=== PATIENT | female | born 1985 | race Two or more races ===

== ENCOUNTER → 2020-03-04 | Outpatient (CLI) | payer OTHER ==
[~2020-03-04] MED LIST: DESO1TAB70 PO
[2020-03-04 17:06] LABS: BASOPHILS % (AUTO) 1 % (0-1); EOSINOPHILS % (AUTO) 4 % (1-7); LYMPHOCYTES % (AUTO) 50 % (22-44); MEAN CORPUSCULAR HEMOGLOBIN 30.2 pg (27.0-34.8); MEAN CORPUSCULAR HGB CONC 32.5 g/dL (32.4-35.8); MEAN PLATELET VOLUME 7.7 fL (7.4-10.4); MONOCYTES % (AUTO) 7 % (2-9); NEUTROPHILS % (AUTO) 38 % (42-75); PLATELET COUNT 418 x10^3/uL (130-400); RED BLOOD COUNT 3.95 x10^6/uL (3.82-5.3)
[2020-03-04 17:10] LABS: MD NO
== END | disposition home or self-care (01) ==
LOC: STAR 14:40
PROVIDERS: ATTEND Obstetrics & Gynecology
DX: Z01.818 Encounter for other preprocedural examination (principal); N94.6 Dysmenorrhea, unspecified; D21.9 Benign neoplasm of connective and other soft tissue, unspecified
CPT/HCPCS: 36415; 84703; 85025

== ENCOUNTER → 2020-03-06 | Outpatient (CLI) | payer OTHER | END | disposition home or self-care (01) | LOC: STAR 11:31 | PROVIDERS: ATTEND Anesthesiology | DX: Z01.812 Encounter for preprocedural laboratory examination (principal); Z20.828 Contact with and (suspected) exposure to other viral communicable diseases | CPT/HCPCS: 36415; 87635 ==

== ENCOUNTER 2020-03-11 13:00 | Day surgery (SDC) | payer OTHER ==
[~2020-03-11] VITALS: Ht 162.6 cm; Wt 61.2 kg
[~2020-03-11 13:00] MED LIST changes: +BUPIVACAINE/PF 0.25% ONE; +FLUORESCEIN SODIUM 500 MG/5 ML ONE; +INDIGO CARMINE 0.8%, 5ML ONE; +KETOROLAC 30 MG/1 ML ONE
[2020-03-11] MEDS ORDERED: LIDOCAINE-MPF 1%, 2ML INFIL STA (13:19)
[2020-03-11] MEDS ORDERED: LACTATED RINGERS 1,000 ML IV SCH (13:19)
[2020-03-11] MEDS ORDERED: CHLORHEXIDINE 15 ML UDC MM STA (13:19)
[2020-03-11 13:48] LABS: HCG UR SG 1.014 (1.003-1.030)
[2020-03-11] MEDS ORDERED: MIDAZOLAM 1 MG/ML, 2ML ONE ×2 (14:36→15:30)
[2020-03-11] MEDS ORDERED: FENTANYL PF 250 MCG/5ML ONE (14:37)
[2020-03-11] MEDS ORDERED: BUPIVACAINE/PF 0.25% ONE (14:55)
[2020-03-11] MEDS ORDERED: HYDROcodone/APAP 7.5-325MG/15ML UDC PO PRN (15:00)
[2020-03-11] MEDS ORDERED: HYDROmorphone 1 MG/ML, 1ML INJ IVPush PRN (15:00)
[2020-03-11] MEDS ORDERED: LABETALOL 5MG/ML, 20ML IV PRN (15:00)
[2020-03-11] MEDS ORDERED: DIPHENHYDRAMINE 50 MG/ML, 1ML IVPush PRN (15:00)
[2020-03-11] MEDS ORDERED: hydrALAzine 20 MG/ML, 1ML IV PRN (15:00)
[2020-03-11] MEDS ORDERED: PROMETHAZINE 25 MG/ML, 1ML IVPush PRN (15:00)
[2020-03-11] MEDS ORDERED: FENTANYL PF 100 MCG/2ML IV PRN (15:00)
[2020-03-11] MEDS ORDERED: HALOPERIDOL 5 MG/ML IV PRN (15:00)
[2020-03-11] MEDS ORDERED: MEPERIDINE/PF 25MG/0.5ML IVPush PRN (15:00)
[2020-03-11] MEDS ORDERED: SILVER NITRATE STICK TP ONE (15:01)
[2020-03-11] MEDS ORDERED: BUPIVACAINE/PF-EPI 0.25% 1:200K INFIL ONE (15:47)
[2020-03-11] MEDS ORDERED: PROPOFOL 10 MG/ML, 20ML ONE (16:05)
[2020-03-11] MEDS ORDERED: DEXAMETHASONE 4 MG/ML, 1ML ONE (16:05)
[2020-03-11] MEDS ORDERED: ONDANSETRON 2MG/ML, 2ML ONE (16:05)
[2020-03-11] MEDS ORDERED: CEFAZOLIN 1,000 MG ONE (16:05)
[2020-03-11] MEDS ORDERED: FENTANYL PF 100 MCG/2ML ONE (16:23)
[2020-03-11] MEDS ORDERED: OXYcodone 5 MG/5 ML ORAL.SOL UDC ONE (16:24)
[2020-03-11] MEDS ORDERED: ACETAMINOPHEN 325 MG TABLET ONE (16:24)
[2020-03-11] MEDS ORDERED: ACETAMINOPHEN 650 MG/20.3 ML UDC ONE (16:24)
[2020-03-11] MEDS ORDERED: ACETAMINOPHEN 325 MG TABLET PO PRN (16:30)
[2020-03-11] MEDS ORDERED: OXYcodone 5 MG/5 ML ORAL.SOL UDC PO PRN (16:30)
[2020-03-11 17:49] LABS: BASOPHILS % (AUTO) 1 % (0-1); EOSINOPHILS % (AUTO) 1 % (1-7); LYMPHOCYTES % (AUTO) 12 % (22-44); MEAN CORPUSCULAR HEMOGLOBIN 30.2 pg (27.0-34.8); MEAN CORPUSCULAR HGB CONC 32.7 g/dL (32.4-35.8); MONOCYTES % (AUTO) 1 % (2-9); NEUTROPHILS % (AUTO) 84 % (42-75); PLATELET COUNT 398 x10^3/uL (130-400); RED BLOOD COUNT 3.73 x10^6/uL (3.82-5.3); RED CELL DISTRIBUTION WIDTH 12.9 % (9.6-15.2)
[2020-03-11 17:51] LABS: MD NO
== END 2020-03-11 18:30 | disposition home or self-care (01) ==
LOC: OUT 13:00
PROVIDERS: ATTEND Obstetrics & Gynecology
DX: D25.0 Submucous leiomyoma of uterus (principal); N94.6 Dysmenorrhea, unspecified; N92.0 Excessive and frequent menstruation with regular cycle; F32.9 Major depressive disorder, single episode, unspecified; Z79.1 Long term (current) use of non-steroidal anti-inflammatories (NSAID); Z79.899 Other long term (current) drug therapy; Z98.890 Other specified postprocedural states
CPT/HCPCS: 36415; 58561; 81025; 84295; 85025; 86850; 86900; 88305; J0690; J1100; J1885; J2250; J2405; J2704; J3010; J7120